=== PATIENT | male | born 1930 | race Caucasian/White ===

== ENCOUNTER → 2017-09-04 | Outpatient (REF) ==
[~2017-09-04] MED LIST: AVANDIA; COMBIVENT INH14.7 GM IH; FORADIL; GLUCOPHAGE; HYZAAR; LEVAQUIN 750MG750 MG PO; PREDNISONE20 MG PO
== END ==
LOC: ZLAB.WCH 08:38
DX: Z01.89 Encounter for other specified special examinations (principal)

== ENCOUNTER → 2017-10-05 | Outpatient (REF) | LOC: ZLAB.WCH 08:36 | DX: Z01.89 Encounter for other specified special examinations (principal) | CPT/HCPCS: G0103 ==

== ENCOUNTER → 2018-01-14 | Outpatient (REF) | LOC: ZLAB.WCH 16:11 | DX: Z01.89 Encounter for other specified special examinations (principal) ==

== ENCOUNTER → 2018-05-10 | Outpatient (REF) ==
[2018-05-10 13:56] LABS: BASO % 0.2 % (0.0-2.0); EOS % 0.1 % (0-4.0); GRAN # 10.1 (1.4-6.5); GRAN % 82.3 % (42.2-75.2); HEMATOCRIT 49.5 % (42.0-52.0); HEMOGLOBIN 15.8 g/dl (13.5-18.0); LYMPH # 0.8 (1.2-3.4); LYMPH % 6.4 % (20.0-51.0); MEAN CELL VOLUME 96 fl (80.0-100.0); MEAN CORPUSCULAR HEMOGLOBIN 31 pg (27.0-31.0); MEAN CORPUSCULAR HGB CONC 32 g/dl (33.0-37.0); MEAN PLATELET VOLUME 11.1 fl (7.4-10.4); MONO # 1.2 (0.1-0.6); PLATELET COUNT 234 K/mm3 (130-400); RED BLOOD COUNT 5.18 M/mm3 (4.20-5.60); REDCELL DISTRIBUTION WIDTH-CV 14.8 % (11.5-14.5)
== END ==
LOC: ZLAB.WCH 13:45
PROVIDERS: Nurse Practitioner Primary Care
DX: Z01.89 Encounter for other specified special examinations (principal)